=== PATIENT | female | born 1950 | race Caucasian/White ===

== ENCOUNTER 2018-10-08 01:30 | Observation (INO) | payer MEDICARE, OTHER ==
[~2018-10-08] VITALS: Ht 154.9 cm; Wt 62.0 kg
[2018-10-08] MEDS ORDERED: SOD CHLORIDE 0.9% 500 ML IV STA (03:04)
--- NOTE | 2018-10-08 05:40 | ERD ---
ER Documentation Chief Complaint Chief Complaint PALPITATIONS [id number] HPI This is a 60-year-old female also had some mild chest pain. Pain is mild in intensity with no exacerbating relieving factors. No shortness of breath. No nausea no vomiting fevers or chills. No other current complaints. ROS All systems reviewed and are negative except as per history of present illness. PMhx/Soc History of Surgery: Yes (uterus) Anesthesia Reaction: No Hx Neurological Disorder: No Hx Respiratory Disorders: No Hx Cardiac Disorders: Yes (hld) Hx Psychiatric Problems: No Hx Miscellaneous Medical Probl: No Hx Alcohol Use: Yes (socially) Hx Substance Use: No Hx Tobacco Use: No Smoking Status: Never smoker Physical Exam Vitals Vital Signs Date Temp Pulse Resp B/P (MAP) Pulse Ox O2 O2 Flow FiO2 Time Delivery Rate 10/08/18 98.1 58 21 153/48 100 Room Air 03:46 (83) 10/08/18 98.7 73 19 175/71 98 01:42 (105) Physical Exam Const: No acute distress Head: Atraumatic Eyes: Normal Conjunctiva ENT: Normal External Ears, Nose and Mouth. Neck: Full range of motion. No meningismus. Resp: Clear to auscultation bilaterally Cardio: Regular rate and rhythm, no murmurs Abd: Soft, non tender, non distended. Normal bowel sounds Skin: No petechiae or rashes Back: No midline or flank tenderness Ext: No cyanosis, or edema Neur: Awake and alert Psych: Normal Mood and Affect Result Diagram: 10/08/18 0331 10/08/18 0331 Results 24 hrs Laboratory Tests Test 10/08/18 03:31 White Blood Count 7.6 10^3/ul Red Blood Count 4.28 10^6/ul Hemoglobin 13.0 g/dl Hematocrit 39.5 % Mean Corpuscular Volume 92.3 fl Mean Corpuscular Hemoglobin 30.4 pg Mean Corpuscular Hemoglobin Concent 32.9 g/dl Red Cell Distribution Width 12.4 % Platelet Count 300 10^3/UL Mean Platelet Volume 10.3 fl Immature Granulocytes % 0.400 % Neutrophils % 70.1 % Lymphocytes % 19.3 % Monocytes % 7.8 % Eosinophils % 1.6 % Basophils % 0.8 % Nucleated Red Blood Cells % 0.0 /100WBC Immature Granulocytes # 0.030 10^3/ul Neutrophils # 5.3 10^3/ul Lymphocytes # 1.5 10^3/ul Monocytes # 0.6 10^3/ul Eosinophils # 0.1 10^3/ul Basophils # 0.1 10^3/ul Nucleated Red Blood Cells # 0.0 10^3/ul Sodium Level 144 mmol/L Potassium Level 3.9 mmol/L Chloride Level 105 mmol/L Carbon Dioxide Level 29 mmol/L Anion Gap 10 Blood Urea Nitrogen 19 mg/dl Creatinine 0.80 mg/dl Est Glomerular Filtrat Rate mL/min > 60 mL/min Glucose Level 112 mg/dl Calcium Level 9.7 mg/dl Troponin I < 0.012 ng/ml B-Type Natriuretic Peptide 79 PG/ML Current Medications Medications Dose Sig/Rigoberto Start Time Status Last (Trade) Ordered Route PRN Stop Time Admin Dose Reason Admin Sodium 500 ml @ Q1H STAT 10/08/18 DC 10/08/18 Chloride 500 mls/hr IV 03:04 03:40 10/08/18 04:04 Procedures/MDM EKG: Rate/Rhythm: [Normal Sinus Rhythm] QRS, ST, T-waves: [No changes consistent w/ acute ischemia] Impression: [No evidence of ischemia or arrhythmia] Chest X-ray 1V Interpreted by me: Soft Tissue: No acute abnormalities Bones: No acute abnormalities Mediastinum/Cardiac Silhouette/Lungs: [No acute abnormalities] Patient's symptoms are concerning for cardiac cause will require inpatient workup and continuous monitoring. Further w/u for ischemia, arrhythmia, PE or dissection will be deferred to the inpatient team. Accepting Care Team: Current data and ongoing care discussed. Time: 5:30 AM Primary Provider: Hospitalist Consulting: Deferred to inpatient team Outstanding Data: none Departure Diagnosis: Primary Impression: Palpitations Condition: Serious ROSALBA LUONG Oct 08, 2018 05:40
[2018-10-08] MEDS ORDERED: ACETAMINOPHEN 325 MG TAB PO PRN (06:00)
[2018-10-08] MEDS ORDERED: NITROGLYCERIN (SL) 0.4 MG TAB SL PRN (06:00)
[2018-10-08] MEDS ORDERED: ONDANSETRON 4 MG INJ IV PRN (06:00)
[2018-10-08] MEDS ORDERED: NACL 0.9% 3 ML SYG IV SCH (06:00)
--- NOTE | 2018-10-08 06:36 | HP ---
Date/Time of Note Date/Time of Note DATE: 10/08/18 TIME: 06:33 Assessment/Plan VTE Prophylaxis Pharmacological prophylaxis: heparin Lines/Catheters IV Catheter Type (from Nrsg): Saline Lock Assessment/Plan Assessment/Plan 68-year-old female with no significant past medical history being admitted for progressively worsening palpitations. PLAN Initial EKG NSR Will admit to telemetry unit for observation Cardiology consult Check TSH and thyroid profile Trend troponin 2D echo Result Diagram: 10/08/18 0331 10/08/18 0331 Results 24hrs Laboratory Tests Test 10/08/18 03:31 White Blood Count 7.6 Red Blood Count 4.28 Hemoglobin 13.0 Hematocrit 39.5 Mean Corpuscular Volume 92.3 Mean Corpuscular Hemoglobin 30.4 Mean Corpuscular Hemoglobin Concent 32.9 Red Cell Distribution Width 12.4 Platelet Count 300 Mean Platelet Volume 10.3 Immature Granulocytes % 0.400 Neutrophils % 70.1 Lymphocytes % 19.3 Monocytes % 7.8 Eosinophils % 1.6 Basophils % 0.8 Nucleated Red Blood Cells % 0.0 Immature Granulocytes # 0.030 Neutrophils # 5.3 Lymphocytes # 1.5 Monocytes # 0.6 Eosinophils # 0.1 Basophils # 0.1 Nucleated Red Blood Cells # 0.0 Sodium Level 144 Potassium Level 3.9 Chloride Level 105 Carbon Dioxide Level 29 Anion Gap 10 Blood Urea Nitrogen 19 Creatinine 0.80 Est Glomerular Filtrat Rate mL/min > 60 Glucose Level 112 Calcium Level 9.7 Troponin I < 0.012 B-Type Natriuretic Peptide 79 HPI/ROS Admit Date/Time Admit Date/Time Hx of Present Illness This is a 68-year-old female with no significant past medical history who presented to the ER complaining of palpitations. Symptoms been progressively getting worse for the past 1 months. Denied chest pain or shortness of breath. Presented to ER, BP was 175/71 with initial heart rate of 71 then in the 50s. Basic labs WNL. EKG shows NSR. PMH/Family/Social Past Medical History Medications Current Medications IV Flush (NS 3 ml) 3 ml PER PROTOCOL IV ; Start 10/08/18 at 06:00; Status UNV Ondansetron HCl (Zofran Inj) 4 mg Q6H PRN IV NAUSEA AND/OR VOMITING; Start 10/08/18 at 06:00; Status UNV Nitroglycerin (Nitroglycerin (Sl Tab) 0.4 Mg) 1 tab Q5M PRN SL CHEST PAIN; Start 10/08/18 at 06:00; Status UNV Acetaminophen (Tylenol Tab) 650 mg Q6H PRN PO PAIN LEVEL 1-3 OR FEVER; Start 10/08/18 at 06:00; Status UNV Enoxaparin Sodium (Lovenox) 40 mg DAILY SC ; Start 10/08/18 at 09:00; Status UNV Coded Allergies: No Known Allergy (Unverified , 10/08/18) Family History Significant Family History: no pertinent family hx Social History Alcohol Use: none Smoking Status: Never smoker Drug Use: none Exam/Review of Systems Vital Signs Vitals Vital Signs Date Temp Pulse Resp B/P (MAP) Pulse Ox O2 O2 Flow FiO2 Time Delivery Rate 10/08/18 57 19 148/58 100 Room Air 05:45 (88) 10/08/18 98.1 03:46 Intake and Output 10/07/18 10/07/18 10/08/18 1515:00 23:00 07:00 IntakeIntake Total 500 ml BalanceBalance 500 ml Exam Exam Constitutional: alert, oriented, well developed, other Head: normocephalic, atraumatic Respiratory: normal air movement Cardiovascular: regular rate and rhythm Gastrointestinal: soft Extremities: normal pulses PMH: see HPI PSH: see HPI . ROSALBA MORENO MD Oct 08, 2018 06:36
[2018-10-08] MEDS ORDERED: ATOR10TA65 PO (07:18)
[2018-10-08] MEDS ORDERED: CALC500T91 PO (07:18)
[2018-10-08] MEDS: ENOXAPARIN 40 MG/0.4 ML SYG SC SCH (08:51)
[2018-10-08 13:13] VITALS: PULSE 61
[2018-10-08 13:19] VITALS: BP 143/64; PULSE 63; RESP 12
[2018-10-08 13:26] VITALS: Ht 154.9 cm; Wt 62.0 kg
[2018-10-08 15:25] VITALS: BP 125/59; PULSE 70; RESP 22
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
--- NOTE | 2018-10-08 15:56 | RADRPT ---
Echocardiogram Report Patient Name: CHARLES ARANDA Gender: Female Date: 1950 Study Date: 08-Oct-2018 [employer]: TB Location: [facility]– [place] Ref. Physician: KERRIE SOLANO Quality: Good Procedures: Transthoracic echocardiogram with complete 2D, M-Mode, and doppler examination. Indications: Palpitations. 2D/M Mode Doppler Measurement Value Normal Ranges Measurement Value Normal Ranges LVIDd 2D 4.1 3.5 - 5.6 cm AV Mean Kumar 1.2 m/sec LVIDs 2D 2.7 2.1 - 4.1 cm AV Mean PG 7.0 mmHg LVPWd 2D 0.8 0.6 - 1.1 cm AV Peak Kumar 2.0 m/sec IVSd 2D 0.9 0.6 - 1.1 cm AV Peak PG 15.0 mmHg AoR Diam 2D 2.6 2.0 - 3.7 cm AV VTI 40.0 cm LA/Ao 2D 1 0 - 1 AI Peak PG 86.0 mmHg LA Dimen 2D 3.3 2.3 - 4.0 cm AI Peak Kumar 4.7 m/sec IVC Diam 1.5 1.2 - 2.0 AI PHT 590.0 msec LVOT Mean Kumar 0.9 m/sec LVOT Mean PG 3.0 mmHg LVOT Peak Kumar 1.4 m/sec LVOT Peak PG 8.0 mmHg MV E Peak Kumar 0.9 m/sec MV A Peak Kumar 1.1 m/sec MV E/A 0.8 MV PHT 74.0 msec MV Decel Time 254 msec MV Decel Hettinger 4 MV E/A 0.8 MV PHT 74.0 msec MVA PHT 3.0 cm2 MR Peak PG 83.0 mmHg MR Peak Kumar 4.6 m/sec TR Peak Kumar 2.4 m/sec TR Peak PG 24.0 mmHg RVSP 27.0 mmHg RA Pressure 3.0 Findings Left Ventricle: Normal left ventricular systolic function. Normal left ventricular cavity size. Normal left ventricular wall thickness. Ejection fraction is visually estimated at 65 %. Tissue Doppler/Mitral Doppler indices are consistent with impaired relaxation (Stage I diastolic dysfunction). Right Ventricle: Normal right ventricular size. Normal right ventricular systolic function. Left Atrium: The left atrium is normal in size. Right Atrium: The right atrium is normal in size. Mitral Valve: Normal appearance of the mitral valve. Moderate mitral annular calcification. Trace mitral regurgitation. Aortic Valve: Aortic cusps appear mildly calcified. Possible bicuspid aortic valve. Moderate aortic valve regurgitation. Tricuspid Valve: Normal appearance of the tricuspid valve. Estimated peak PA systolic pressure 27 mmHg. There is trace tricuspid regurgitation. Pulmonic Valve: Pulmonic valve not well visualized. Pericardium: Normal pericardium with no significant pericardial effusion. Aorta: Normal aortic root. IVC: Normal size and normal respiratory collapse consistent with normal right atrial pressure. Conclusions Normal left ventricular systolic function. Grade 1 diastolic dysfunction. Possible bicuspid aortic valve with moderate aortic regurgitation. Trace mitral and tricuspid regurgitation with normal pulmonary pressures. Electronically Signed By: Denise Erickson 08-Oct-2018 15:55:15 -4900 Patient Name: CHARLES ARANDA Study Date: 08-Oct-2018 [id number]
[2018-10-08 16:01] VITALS: PULSE 64
[2018-10-08 20:00] VITALS: PULSE 65
[2018-10-08] MEDS: CALCIUM CARBONATE 1.25 GM TAB PO SCH (20:20)
[2018-10-08] MEDS ORDERED: ATORVASTATIN 10 MG TAB PO SCH (21:00)
--- NOTE | 2018-10-08 22:24 | QN ---
Documentation Comment 68-year-old female with no significant past medical history being admitted for progressively worsening palpitations. PLAN Initial EKG NSR admitted to telemetry unit for observation Cardiology consult Check TSH and thyroid profile complete AACS r/o f/u 2D echo KERRIE SOLANO Oct 08, 2018 22:23
[2018-10-08 23:58] VITALS: BP 109/54; PULSE 61; RESP 18
[2018-10-09] VITALS: PULSE 58
[2018-10-09 04:00] VITALS: BP 124/60; PULSE 57; PULSE 60; RESP 19
[2018-10-09 07:55] VITALS: BP 105/51; PULSE 58; RESP 16
[2018-10-09 08:11] VITALS: PULSE 66
[2018-10-09] MEDS: CALCIUM CARBONATE 1.25 GM TAB PO SCH (08:45)
[2018-10-09] MEDS: ENOXAPARIN 40 MG/0.4 ML SYG SC SCH (08:48)
--- NOTE | 2018-10-09 09:12 | PN ---
Date/Time of Note Date/Time of Note DATE: 10/09/18 TIME: 09:08 Assessment/Plan VTE Prophylaxis Risk score (from Ns)>0 risk: 2 SCD applied (from Nsg): Yes Pharmacological prophylaxis: LMWH Lines/Catheters IV Catheter Type (from [facility] Saline Lock Assessment/Plan Hospital Course 68 yo with palpitations and sensation of rapid heart rate, secondary to anxiety. No arrhythmias detected. However, there is the incidental finding of a bicuspid aortic valve with moderate aortic regurgitation. Assessment/Plan Impression: Palpitations due to anxiety Right bundle branch block on EKG Bicuspid aortic valve with moderate aortic regurgitation Recommendations: Discussed with patient what a bicuspid aortic valve is, that there is a moderate amount of leakage, and that this an incidental finding, has nothing to do with her symptoms. However, it is a condition that needs to be monitored, she should have a repeat echo in one year. She may at some point develop more severe regurgitation and require a valve procedure. Written notes on the back of my card given to patient and daughter regarding this. No physical activity restrictions, encouraged healthy diet, regular exercise. Stable for discharge from a cardiac standpoint, follow in one year as outpatient for echo. Result Diagram: 10/09/18 0525 10/09/18 0525 Results 24hrs Laboratory Tests Test 10/08/18 14:48 10/09/18 05:25 Creatine Kinase 107 Creatine Kinase Index 0.5 Creatinine Kinase MB (Mass) 0.58 Troponin I < 0.012 White Blood Count 4.3 #L Red Blood Count 3.96 L Hemoglobin 11.9 L Hematocrit 36.3 L Mean Corpuscular Volume 91.7 Mean Corpuscular Hemoglobin 30.1 Mean Corpuscular Hemoglobin Concent 32.8 Red Cell Distribution Width 12.3 Platelet Count 261 Mean Platelet Volume 10.2 Immature Granulocytes % 0.200 Neutrophils % 62.5 Lymphocytes % 26.4 Monocytes % 7.4 Eosinophils % 2.8 Basophils % 0.7 Nucleated Red Blood Cells % 0.0 Immature Granulocytes # 0.010 Neutrophils # 2.7 Lymphocytes # 1.1 Monocytes # 0.3 Eosinophils # 0.1 Basophils # 0.0 Nucleated Red Blood Cells # 0.0 Sodium Level 143 Potassium Level 4.2 Chloride Level 105 Carbon Dioxide Level 28 Anion Gap 10 Blood Urea Nitrogen 19 Creatinine 0.75 Est Glomerular Filtrat Rate mL/min > 60 Glucose Level 94 Hemoglobin A1c 5.6 Calcium Level 9.4 Magnesium Level 2.1 Total Bilirubin 0.8 Direct Bilirubin 0.00 Indirect Bilirubin 0.8 Aspartate Amino Transf (AST/SGOT) 30 Alanine Aminotransferase (ALT/SGPT) 23 Alkaline Phosphatase 81 Total Protein 7.0 Albumin 3.8 Globulin 3.20 Albumin/Globulin Ratio 1.18 Triglycerides Level 77 Cholesterol Level 160 LDL Cholesterol, Calculated 91 HDL Cholesterol 54 Cholesterol/HDL Ratio 2.9 Subjective 24 Hr Interval Summary Free Text/Dictation Patient feels well this morning. No palpitations, no dyspnea. Telemetry overnight reviewed, nsr. Exam/Review of Systems Vital Signs Vitals Vital Signs Date Temp Pulse Resp B/P (MAP) Pulse Ox O2 O2 Flow FiO2 Time Delivery Rate 10/09/18 66 08:11 10/09/18 97.8 16 105/51 96 Room Air 07:55 (69) Intake and Output 10/08/18 10/08/18 10/09/18 1515:00 23:00 07:00 IntakeIntake Total 350 ml BalanceBalance 350 ml Exam Constitutional: alert, oriented, well developed Psych: no complaints, nl mood/affect Head: normocephalic, atraumatic Eyes: nl conjunctiva, EOMI, nl lids, nl sclera ENMT: nl external ears & nose, nl lips & teeth, nl nasal mucosa & septum Neck: supple; No jvd, No bruits Respiratory: clear to auscultation, normal air movement Cardiovascular: regular rate and rhythm, murmurs/extra sounds (soft systolic murmur at lusb) Gastrointestinal: soft, nl liver, spleen, non-tender Musculoskeletal: nl extremities to inspection Extremities: normal pulses Neurological: nl mental status, nl speech Skin: nl turgor; No rash or lesions Medications Medications Current Medications IV Flush (NS 3 ml) 3 ml PER PROTOCOL IV ; Start 10/08/18 at 06:00 Ondansetron HCl (Zofran Inj) 4 mg Q6H PRN IV NAUSEA AND/OR VOMITING; Start 10/08/18 at 06:00 Nitroglycerin (Nitroglycerin (Sl Tab) 0.4 Mg) 1 tab Q5M PRN SL CHEST PAIN; Start 10/08/18 at 06:00 Acetaminophen (Tylenol Tab) 650 mg Q6H PRN PO PAIN LEVEL 1-3 OR FEVER; Start 10/08/18 at 06:00 Enoxaparin Sodium (Lovenox) 40 mg DAILY SC Last administered on 10/09/18at 08:48; Admin Dose 40 MG; Start 10/08/18 at 09:00 Atorvastatin Calcium (Lipitor) 10 mg QHS PO Last administered on 10/08/18at 20:20; Admin Dose 10 MG; Start 10/08/18 at 21:00 Calcium Carbonate (Oyster Shell Calcium) 1.25 gm DAILY PO Last administered on 10/09/18at 08:45; Admin Dose 1.25 GM; Start 10/08/18 at 20:00 JEREL CALI Oct 09, 2018 09:12
[2018-10-09 11:06] VITALS: BP 111/50; PULSE 60; RESP 18
--- NOTE | 2018-10-09 11:24 | PDOCDIS ---
Discharge Instructions DIAGNOSIS Discharge Diagnosis Palpitations Aortic regurgitation CONDITION [id number] Patient Condition: [id number] Stable FOLLOW UP/APPOINTMENTS Follow-up Plan Make an appointment to see a rug layer VIK IBARRA MD Oct 09, 2018 11:24
[2018-10-09 12:10] VITALS: PULSE 79
--- NOTE | 2018-10-09 13:04 | DS ---
Date/Time of Note Date/Time of Note DATE: 10/09/18 TIME: 13:03 Discharge Summary Admission/Discharge Info Admit Date/Time Oct 08, 2018 at 05:39 Discharge Date/Time Discharge Diagnosis Palpitations Aortic regurgitation Patient Condition: Stable Hospital Course Monitored on telemetry, no arrythmia Ruled out for ACS with negative biomarkers TTE performed showing bicuspid AV and moderate AI. Seen by Dr Erickson with recommendation for serial echos as an outpatinet, no acute management needed. Discharged home Home Meds Reported Medications Atorvastatin Calcium (Atorvastatin Calcium) 10 Mg Tablet, 10 MG PO QHS, #30 TAB 10/08/18 Calcium Carbonate ([id number]) 500 Mg Tablet, 500 MG PO DAILY, TAB 10/08/18 Follow-up Plan Make an appointment to see a painter spray Primary Care Provider Care Physician No Primary Pending Labs Laboratory Tests Test 10/08/18 14:48 10/09/18 05:25 Creatine Kinase 107 IU/L (23-200) Creatine Kinase Index 0.5 Creatinine Kinase MB 0.58 ng/ml (0.0-2.4) (Mass) Troponin I < 0.012 ng/ml (0.000-0.120) White Blood Count 4.3 10^3/ul (4.8-10.8) Red Blood Count 3.96 10^6/ul (4.20-5.40) Hemoglobin 11.9 g/dl (12.0-16.0) Hematocrit 36.3 % (37.0-47.0) Mean Corpuscular Volume 91.7 fl (82.0-101.0) Mean Corpuscular 30.1 pg (29.0-33.0) Hemoglobin Mean Corpuscular 32.8 g/dl (32.0-37.0) Hemoglobin Concent Red Cell Distribution 12.3 % (11.5-14.5) Width Platelet Count 261 10^3/UL (140-415) Mean Platelet Volume 10.2 fl (7.4-10.4) Immature Granulocytes % 0.200 % (0.001-0.429) Neutrophils % 62.5 % (39.0-77.0) Lymphocytes % 26.4 % (15.0-51.0) Monocytes % 7.4 % (0.0-11.0) Eosinophils % 2.8 % (0.0-7.0) Basophils % 0.7 % (0.0-2.0) Nucleated Red Blood Cells 0.0 /100WBC (0.0-0.0) % Immature Granulocytes # 0.010 10^3/ul (0.0-0.031) Neutrophils # 2.7 10^3/ul (1.6-7.5) Lymphocytes # 1.1 10^3/ul (0.8-2.9) Monocytes # 0.3 10^3/ul (0.3-0.9) Eosinophils # 0.1 10^3/ul (0.0-0.5) Basophils # 0.0 10^3/ul (0.0-0.1) Nucleated Red Blood Cells 0.0 10^3/ul (0.0-0.0) # Sodium Level 143 mmol/L (135-144) Potassium Level 4.2 mmol/L (3.5-5.1) Chloride Level 105 mmol/L (97-110) Carbon Dioxide Level 28 mmol/L (21-31) Anion Gap 10 (5-13) Blood Urea Nitrogen 19 mg/dl (7-20) Creatinine 0.75 mg/dl (0.44-1.00) Est Glomerular Filtrat > 60 mL/min (>60) Rate mL/min Glucose Level 94 mg/dl (70-220) Hemoglobin A1c 5.6 % (0-5.9) Calcium Level 9.4 mg/dl (8.4-10.2) Magnesium Level 2.1 mg/dl (1.7-2.5) Total Bilirubin 0.8 mg/dl (0.2-1.3) Direct Bilirubin 0.00 mg/dl (0.00-0.20) Indirect Bilirubin 0.8 mg/dl (0-1.1) Aspartate Amino 30 IU/L (15-46) Transf (AST/SGOT) Alanine 23 IU/L (13-69) Aminotransferase (ALT/SGPT ) Alkaline Phosphatase 81 IU/L (42-121) Total Protein 7.0 g/dl (6.1-8.1) Albumin 3.8 g/dl (3.3-4.9) Globulin 3.20 g/dl (1.3-3.2) Albumin/Globulin Ratio 1.18 Triglycerides Level 77 mg/dl (0-149) Cholesterol Level 160 mg/dl (100-200) LDL Cholesterol, 91 mg/dl Calculated HDL Cholesterol 54 mg/dl (35-98) Cholesterol/HDL Ratio 2.9 RATIO VIK IBARRA MD Oct 09, 2018 13:04
== END 2018-10-09 13:11 | disposition home or self-care (01) ==
LOC: E/R 01:30 → TEL 05:39
PROVIDERS: ADMIT Internal Medicine; ATTEND Internal Medicine
DX: R00.2 Palpitations (principal); I35.1 Nonrheumatic aortic (valve) insufficiency
CPT/HCPCS: 36415; 71045; 80048; 80053; 80061; 82550; 82553; 83036; 83735; 83880; 84439; 84443; 84484; 85025; 93005; 93306; 96360; 99285; G0378; J1650; J7040